=== PATIENT | female | born 1970 ===

== ENCOUNTER 2025-03-05 09:00 | Day surgery (SDC) | payer OTHER ==
[2025-02-19 10:16] VITALS: BP 114/77
[2025-02-19 10:29] LABS: BASO % 0.5 % (0.1-1.2); EOS # 0.13 (0.04-0.54); EOS % 2.3 % (0.7-7.0); LYMPH # 1.31 (1.18-3.74); LYMPH % 23.1 % (19.3-53.1); MEAN PLATELET VOLUME 9.10 fl (9.4-12.4); MONO # 0.42 (0.24-0.82); MONO % 7.4 % (4.7-12.5); NEUT # 3.78 (1.56-6.13); NEUT % 66.5 % (34.0-71.1); RED CELL DISTRIBUTION WIDTH 13.9 % (11.6-14.4)
[2025-02-19 10:38] LABS: URINE APPEARANCE Clear; URINE BILIRRUBIN Negative (NEGATIVE); URINE COLOR Yellow; URINE GLUCOSE Negative (NEGATIVE); URINE KETONE Negative (NEGATIVE); URINE LEUKOCYTE Trace; URINE NITRATE Negative; URINE PROTEIN Negative (NEGATIVE); URINE UROBILINOGEN 0.2 E.U./dl
[2025-02-19 10:43] LABS: URINE BACTERIA 98.4 uL (0.0-1933); URINE EPITHELIAL CELLS 11.8 uL (0.0-38.8); URINE RBC 12.4 uL (0.0-20.8); URINE WBC 9.5 uL (0.0-23.2)
[2025-02-19 10:49] LABS: URINE BLOOD Trace; URINE CAST 0.29 uL (0.0-1.40)
[2025-02-19 10:58] LABS: INR 1.01
[2025-02-19 11:18] LABS: ALT/SGPT 19.0 U/L (12-78); AST/SGOT 17.0 U/L (15-37); BILIRUBIN TOTAL 0.49 mg/dL (0.3-1.2); BUN CREA RATIO 22.0 (7.0-25.0); CREATININE SERUM 0.74 mg/dL (0.55-1.02); GFR 81.18; GLOBULINA 3.4 G/DL (2.4-3.5); GLUCOSE FASTING 84.0 mg/dL (65-100); OSMOLALITY SERUM 285.0 MOSM/KG (275-295)
[~2025-03-05] VITALS: Ht 154.9 cm; Wt 62.6 kg
[~2025-03-05 09:00] MED LIST: ARIMIDEX; CEFAZOLIN SODIUM 1,000 MG VIAL IV ONE; D3
== END 2025-03-05 11:40 | disposition home or self-care (01) ==
LOC: CIR.AMB 09:00
PROVIDERS: ATTEND Surgery
DX: K80.10 Calculus of gallbladder with chronic cholecystitis without obstruction (principal)